=== PATIENT | female | born 1995 | race Caucasian/White ===

== ENCOUNTER 2020-11-12 10:20 | Emergency (ER) | payer BC ==
[~2020-11-12] VITALS: Ht 160 cm; Wt 63.6 kg
[2020-11-12] MEDS ORDERED: CLEOCIN300 MG PO (11:42)
[2020-11-12] MEDS ORDERED: HYDROCO/APAP1 TA9 PO (11:42)
[2020-11-12 11:50] VITALS: BP 106/66
== END 2020-11-12 11:50 | disposition home or self-care (01) | DRG 159 ==
LOC: ED 10:20
DX: K04.7 Periapical abscess without sinus (principal); K02.9 Dental caries, unspecified